=== PATIENT | male | born 1960 | race Caucasian/White ===

== ENCOUNTER 2023-08-27 22:20 | Inpatient (IN) | payer OTHER ==
[2023-08-27 22:48] VITALS: BMI 22.7
[2023-08-27] MEDS ORDERED: IBUPROFEN 400 MG TABLET (FP) PO PRN (23:05)
[2023-08-27] MEDS ORDERED: POLYETHYLENE GLYCOL (HEALTHYLAX) 3350 17 GM PACKET PO PRN (23:05)
[2023-08-27] MEDS ORDERED: BISMUTH SUBSALICYLATE 524 MG/30 ML PO PRN (23:05)
[2023-08-27] MEDS ORDERED: BENZOCAINE/MENTHOL (CHLORASEPTIC ) LOZENGE MM PRN (23:05)
[2023-08-27] MEDS ORDERED: MAGNESIUM HYDROX 2400MG/30ML ORAL SUSPENSION 30 ML CUP PO PRN (23:05)
[2023-08-27] MEDS ORDERED: LOPERAMIDE HCL 2 MG CAPSULE PO PRN (23:05)
[2023-08-27] MEDS ORDERED: guaiFENesin 600 MG TABLET.ER (FP) PO PRN (23:05)
[2023-08-27] MEDS ORDERED: BENZONATATE 200 MG CAPSULE PO PRN (23:05)
[2023-08-28] MEDS: hydrOXYzine PAMOATE 25 MG CAPSULE (FP) PO PRN (01:52)
[2023-08-28] MEDS: METHOCARBAMOL 500 MG TABLET PO PRN (01:52)
[2023-08-28 09:01] LABS: HEMOGLOBIN 13.7 GM/dL (11.7-16.9); MCH 28.1 pg (25.7-33.7); MCHC 33.3 g/dl (32.0-35.9); MEAN CELL VOLUME 84.3 fl (80-96); MEAN PLT VOLUME 6.3 fl (7.5-11.1); PLATELET COUNT 184 10^3/uL (134-434); RBC 4.86 M/mm3 (4.00-5.60); RDW 14.5 % (11.9-15.9); WHITE BLOOD COUNT 4.4 K/mm3 (4.0-10.0)
[2023-08-28] MEDS: ACETAMINOPHEN 325 MG TABLET (FP) PO PRN (09:25)
[2023-08-28 09:51] LABS: POTASSIUM 4.2 mmol/L (3.5-5.1)
[2023-08-28 10:22] LABS: CALCIUM 9.2 mg/dL (8.5-10.1)
[2023-08-28 10:23] LABS: ALBUMIN 3.8 g/dl (3.4-5.0); BLOOD UREA NITROGEN 7.8 mg/dL (7-18)
[2023-08-28 10:26] LABS: CREATININE 0.8 mg/dL (0.55-1.3)
[2023-08-28 10:27] LABS: BILIRUBIN,TOTAL 0.6 mg/dL (0.2-1); TOT PROT 7.5 g/dl (6.4-8.2)
[2023-08-28] MEDS: diazePAM 5 MG TABLET PO SCH (10:33)
[2023-08-28] MEDS: PRENATAL VITAMINS W/ FOLIC ACID TABLET (FP) PO SCH (10:34)
[2023-08-28] MEDS: cloNIDine HCL 0.1 MG TABLET PO PRN (11:25)
[2023-08-28] MEDS: diazePAM 5 MG TABLET PO PRN (13:42)
[2023-08-28] MEDS: THIAMINE HCL 100 MG TABLET (FP) PO SCH (22:20)
[2023-08-28] MEDS: MELATONIN 5 MG TABLETS PO SCH (22:20)
[2023-08-30] MEDS: diazePAM 5 MG TABLET PO SCH (06:08)
[2023-08-31] MEDS: diazePAM 5 MG TABLET PO SCH (06:23)
[2023-08-31] MEDS: DICYCLOMINE HCL 10 MG CAPSULE PO PRN (19:25)
[2023-08-31] MEDS: MAG HYDROX/AL HYDROX/SIMETH 30 ML UNIT-DOSE CUP PO PRN (19:27)
[2023-08-31] MEDS: ONDANSETRON *ODT* 4 MG TABLET SL PRN (22:33)
[2023-09-01] MEDS: IBUPROFEN 600 MG TABLET (FP) PO PRN (00:19)
[2023-09-01] MEDS: diazePAM 5 MG TABLET PO ONE (05:39)
[2023-09-01 06:25] VITALS: RESP 16
[2023-09-01 09:28] VITALS: BP 117/73; PULSE 72; TEMP 98.6
== END 2023-09-01 09:41 | disposition home or self-care (01) | DRG 775 ==
LOC: YASAS 22:20 → Y3N 08-28 01:12
PROVIDERS: ADMIT Allergy & Immunology; ATTEND Surgery
PROC: HZ2ZZZZ Detoxification Services for Substance Abuse Treatment (ICD-10-PCS; principal; 2023-08-28)
DX: F10.230 Alcohol dependence with withdrawal, uncomplicated (principal); F10.220 Alcohol dependence with intoxication, uncomplicated
CPT/HCPCS: 36415; 80053; 85027; 86780; 87811; 93005; 93010; Q0162